=== PATIENT | male | born 1935 | race Caucasian/White ===

== ENCOUNTER 2021-09-03 08:41 | Outpatient (CLI) | payer MEDICARE, SELFPAY | END 2021-09-03 08:42 | disposition home or self-care (01) | LOC: WOUND 08:41 | PROVIDERS: Visit Provider Nurse Practitioner Family | DX: E11.621 Type 2 diabetes mellitus with foot ulcer (principal); E11.40 Type 2 diabetes mellitus with diabetic neuropathy, unspecified; L97.412 Non-pressure chronic ulcer of right heel and midfoot with fat layer exposed; L97.422 Non-pressure chronic ulcer of left heel and midfoot with fat layer exposed; Z79.84 Long term (current) use of oral hypoglycemic drugs | CPT/HCPCS: 11042 ==

== ENCOUNTER 2021-09-10 08:37 | Outpatient (CLI) | payer MEDICARE, SELFPAY | END 2021-09-10 08:38 | disposition home or self-care (01) | PROVIDERS: PCP Family Medicine; Visit Provider Nurse Practitioner Family | DX: E11.621 Type 2 diabetes mellitus with foot ulcer (principal); E11.40 Type 2 diabetes mellitus with diabetic neuropathy, unspecified; L97.412 Non-pressure chronic ulcer of right heel and midfoot with fat layer exposed | CPT/HCPCS: 97597 ==

== ENCOUNTER 2021-09-24 09:24 | Outpatient (CLI) | payer MEDICARE, SELFPAY | END 2021-09-24 09:25 | disposition home or self-care (01) | LOC: WOUND 09:24 | PROVIDERS: PCP Family Medicine; Visit Provider Nurse Practitioner Family | DX: E11.621 Type 2 diabetes mellitus with foot ulcer (principal); L97.412 Non-pressure chronic ulcer of right heel and midfoot with fat layer exposed; L97.422 Non-pressure chronic ulcer of left heel and midfoot with fat layer exposed | CPT/HCPCS: 99212 ==

== ENCOUNTER 2021-09-28 13:34 | Outpatient (CLI) | payer MEDICARE, SELFPAY ==
[2021-09-28 21:30] LABS: Albumin* 3.9 g/dL (3.3-5.0)
[2021-09-28 21:31] LABS: Chloride* 107 mmol/L (96-114); Potassium* 4.5 mmol/L (3.6-5.1); Sodium* 138 mmol/L (135-149)
[2021-09-28 21:33] LABS: Creatinine* 0.8 mg/dL (0.5-1.5); Estimated Glomerular Filt Rate 87 ml/min
[2021-09-28 21:36] LABS: Alanine Aminotransferase* 14 U/L (4-50); Alkaline Phosphatase* 100 U/L (40-150); Aspartate Amino Transferase* 20 U/L (12-35); Bilirubin Total* 0.3 mg/dL (0.1-1.5); Blood Urea Nitrogen* 28 mg/dL (7-30); Calcium* 8.8 mg/dL (8.4-10.6); Carbon Dioxide* 26 mmol/L (20-32); Glucose* 133 mg/dL (60-115); Total Protein* 6.5 g/dL (6.0-8.3)
== END 2021-09-28 13:35 | disposition home or self-care (01) ==
LOC: FRMREF 13:35
PROVIDERS: PCP Family Medicine; Visit Provider Family Medicine
DX: E11.9 Type 2 diabetes mellitus without complications (principal); Z79.01 Long term (current) use of anticoagulants
CPT/HCPCS: 80053

== ENCOUNTER 2022-01-11 07:53 | Outpatient (CLI) | payer MEDICARE, SELFPAY ==
[2022-01-11 14:10] LABS: Chloride* 107 mmol/L (96-114); Potassium* 4.2 mmol/L (3.6-5.1); Sodium* 139 mmol/L (135-149)
[2022-01-11 14:13] LABS: Alanine Aminotransferase* 16 U/L (4-50); Alkaline Phosphatase* 77 U/L (40-150); Aspartate Amino Transferase* 21 U/L (12-35); Bilirubin Total* 0.4 mg/dL (0.1-1.5); Blood Urea Nitrogen* 24 mg/dL (7-30); Carbon Dioxide* 27 mmol/L (20-32); Creatinine* 0.8 mg/dL (0.5-1.5); Estimated Glomerular Filt Rate 86 ml/min; Glucose* 122 mg/dL (60-115); Total Protein Urine 6 mg/dL; Total Protein* 6.5 g/dL (6.0-8.3)
[2022-01-11 14:14] LABS: Calcium* 8.7 mg/dL (8.4-10.6)
[2022-01-11 14:20] LABS: Microalbumin Urine 2 mg/dL
[2022-01-11 14:23] LABS: Creatinine Urine 102.1 mg/dL; Microalbumin Creatinine Ratio 10 mg/g (0-30)
[2022-01-11 15:01] LABS: Hepatitis C Virus Antibody* Negative (Negative)
--- NOTE | 2022-01-26 09:35 | ONC.NURNOTE ---
Addendum entered by Nadja Mustafa RN 02/04/22 12:26: Left another message today to have patient call back to schedule. Original Note: Left message on patient's phone to schedule appointment with hematology regarding unprovoked? PE.
== END 2022-01-11 07:54 | disposition home or self-care (01) ==
PROVIDERS: PCP Family Medicine; Visit Provider Family Medicine
DX: Z00.00 Encounter for general adult medical examination without abnormal findings (principal); E05.90 Thyrotoxicosis, unspecified without thyrotoxic crisis or storm; E11.9 Type 2 diabetes mellitus without complications; Z11.59 Encounter for screening for other viral diseases
CPT/HCPCS: 80053; 82043; 82570; 84156; 84443; 86803

== ENCOUNTER 2022-03-02 10:15 | Outpatient (CLI) | payer MEDICARE, SELFPAY ==
[2022-03-02 13:51] LABS: INR 2.28 (0.91-1.10); Prothrombin Time 26.3 Seconds
== END 2022-03-02 10:16 | disposition home or self-care (01) ==
LOC: FRMREF 10:16
PROVIDERS: PCP Family Medicine; Visit Provider Family Medicine
DX: I82.409 Acute embolism and thrombosis of unspecified deep veins of unspecified lower extremity (principal); Z79.01 Long term (current) use of anticoagulants
CPT/HCPCS: 85610

== ENCOUNTER 2022-03-11 12:40 | Outpatient (CLI) | payer MEDICARE, SELFPAY | END 2022-03-11 12:41 | disposition home or self-care (01) | LOC: WOUND 12:40 | PROVIDERS: PCP Family Medicine; Visit Provider Nurse Practitioner Family | DX: E11.621 Type 2 diabetes mellitus with foot ulcer (principal); L97.512 Non-pressure chronic ulcer of other part of right foot with fat layer exposed; L97.412 Non-pressure chronic ulcer of right heel and midfoot with fat layer exposed; I87.2 Venous insufficiency (chronic) (peripheral); L97.312 Non-pressure chronic ulcer of right ankle with fat layer exposed; Z79.84 Long term (current) use of oral hypoglycemic drugs | CPT/HCPCS: 11042 ==

== ENCOUNTER 2022-03-18 13:56 | Outpatient (CLI) | payer MEDICARE, SELFPAY | END 2022-03-18 13:57 | disposition home or self-care (01) | LOC: WOUND 13:56 | PROVIDERS: PCP Family Medicine; Visit Provider Nurse Practitioner Family | DX: E11.621 Type 2 diabetes mellitus with foot ulcer (principal); L97.512 Non-pressure chronic ulcer of other part of right foot with fat layer exposed; L97.312 Non-pressure chronic ulcer of right ankle with fat layer exposed; L97.412 Non-pressure chronic ulcer of right heel and midfoot with fat layer exposed; I87.2 Venous insufficiency (chronic) (peripheral); I89.0 Lymphedema, not elsewhere classified; Z79.84 Long term (current) use of oral hypoglycemic drugs | CPT/HCPCS: 11042 ==

== ENCOUNTER 2022-03-25 13:43 | Outpatient (CLI) | payer MEDICARE, SELFPAY | END 2022-03-25 13:44 | disposition home or self-care (01) | LOC: WOUND 13:43 | PROVIDERS: PCP Family Medicine; Visit Provider Nurse Practitioner Family | DX: E11.621 Type 2 diabetes mellitus with foot ulcer (principal); L97.512 Non-pressure chronic ulcer of other part of right foot with fat layer exposed; L97.412 Non-pressure chronic ulcer of right heel and midfoot with fat layer exposed; E11.622 Type 2 diabetes mellitus with other skin ulcer; L97.312 Non-pressure chronic ulcer of right ankle with fat layer exposed; Z79.84 Long term (current) use of oral hypoglycemic drugs | CPT/HCPCS: 11042; 97597 ==

== ENCOUNTER 2022-03-29 13:42 | Outpatient (CLI) | payer MEDICARE, SELFPAY ==
--- NOTE | 2022-03-29 14:00 | CRLHL7_ITS ---
For Patients: As a result of the Century Cures Act, medical imaging exams and procedure reports are released immediately into your electronic medical record. You may view this report before your referring provider. If you have questions, please contact your health care provider. DUPLEX ARTERIAL ULTRASOUND BILATERAL LOWER EXTREMITIES, 03/29/2022 CLINICAL HISTORY: Peripheral arterial disease, nonhealing right lower extremity wound. COMPARISON: 07/07/2021. TECHNIQUE: The bilateral lower extremity arteries were examined per exam specific protocol with castillo-scale ultrasound, color-flow and Doppler spectral analysis. Peak systolic velocities (PSV), Doppler waveform quality and velocity ratios, if applicable, were documented at sites per exam specific protocol. FINDINGS: RIGHT: PSV (cm/sec). Waveform (T-Tri, B-Bi, M-[place]). BLOW TORCH BURNER: 65. B. DFA: 99. T. FA PRX: 83. T. FA MID: 95. T. FA DISTAL: 66. Multiphasic. POP A: 141. Multiphasic. SHERRY A: 75. M. DIONY: 127. M. DPA: 38. M. LEFT: PSV (cm/sec). Waveform (T-Tri, B-Bi, M-[place]). BLOW TORCH BURNER: 56. T. DFA: 107. B. FA PRX: 78. T. FA MID: 66. T. FA DISTAL: 45. B. POP A: 50. T. SHERRY A: 47. M. DIONY: 69. M. DPA: 102. M. Right Lower Extremity: Predominantly multiphasic waveforms are seen throughout with monophasic waveforms noted in the pedal arteries. No hemodynamically-significant stenoses or occlusions are identified. Left Lower Extremity: Predominantly multiphasic waveforms are seen throughout with monophasic waveforms noted in the pedal arteries. No hemodynamically-significant stenoses or occlusions are identified. No flow is seen in the bilateral posterior tibial arteries. IMPRESSION: Right lower extremity: Predominantly multiphasic waveforms throughout bilateral lower extremity arterial systems with monophasic waveforms noted in the pedal arteries. No hemodynamically-significant stenoses or occlusions are identified. The posterior tibial arteries do not demonstrate flow in both lower extremities, which may be due to suboptimal visualization. IRINEO WILHELM M.D. Vascular and Interventional Radiology [email or web address] Transcribed: 5:35 p.m. ALIVIA/Dictated by: Irineo Wilhelm MD @ 03/29/2022 5:02:00 PM (Electronically Signed)
== END 2022-03-29 13:43 | disposition home or self-care (01) ==
LOC: US 13:46
PROVIDERS: PCP Family Medicine; Visit Provider Nurse Practitioner Family
DX: L97.518 Non-pressure chronic ulcer of other part of right foot with other specified severity (principal)
CPT/HCPCS: 93926

== ENCOUNTER 2022-04-01 13:43 | Outpatient (CLI) | payer MEDICARE, SELFPAY | END 2022-04-01 13:44 | disposition home or self-care (01) | LOC: WOUND 13:43 | PROVIDERS: PCP Family Medicine; Visit Provider Nurse Practitioner Family | DX: E11.621 Type 2 diabetes mellitus with foot ulcer (principal); L97.512 Non-pressure chronic ulcer of other part of right foot with fat layer exposed; E11.622 Type 2 diabetes mellitus with other skin ulcer; L97.312 Non-pressure chronic ulcer of right ankle with fat layer exposed; I87.2 Venous insufficiency (chronic) (peripheral); I89.0 Lymphedema, not elsewhere classified; Z79.84 Long term (current) use of oral hypoglycemic drugs | CPT/HCPCS: 11042; 97597 ==

== ENCOUNTER 2022-04-15 13:12 | Outpatient (CLI) | payer MEDICARE, SELFPAY | END 2022-04-15 13:13 | disposition home or self-care (01) | LOC: WOUND 13:12 | PROVIDERS: PCP Family Medicine; Visit Provider Nurse Practitioner Family | DX: I87.2 Venous insufficiency (chronic) (peripheral) (principal); E11.621 Type 2 diabetes mellitus with foot ulcer; L97.512 Non-pressure chronic ulcer of other part of right foot with fat layer exposed; I89.0 Lymphedema, not elsewhere classified; Z79.84 Long term (current) use of oral hypoglycemic drugs | CPT/HCPCS: 97597 ==

== ENCOUNTER 2022-04-23 12:25 | Outpatient (CLI) | payer MEDICARE, SELFPAY | END 2022-04-23 12:26 | disposition home or self-care (01) | LOC: WOUND 12:26 | PROVIDERS: PCP Family Medicine; Visit Provider Nurse Practitioner Family | DX: E11.621 Type 2 diabetes mellitus with foot ulcer (principal); L97.512 Non-pressure chronic ulcer of other part of right foot with fat layer exposed; I87.2 Venous insufficiency (chronic) (peripheral); I89.0 Lymphedema, not elsewhere classified; Z79.84 Long term (current) use of oral hypoglycemic drugs | CPT/HCPCS: 11042 ==

== ENCOUNTER 2022-05-13 10:27 | Outpatient (RCR) | payer MEDICARE, SELFPAY | END 2022-11-09 23:59 | disposition home or self-care (01) | LOC: CCIC 10:27 | PROVIDERS: PCP Family Medicine; Visit Provider Internal Medicine Hematology & Oncology | DX: I26.99 Other pulmonary embolism without acute cor pulmonale (principal); I82.409 Acute embolism and thrombosis of unspecified deep veins of unspecified lower extremity; Z79.01 Long term (current) use of anticoagulants; E11.40 Type 2 diabetes mellitus with diabetic neuropathy, unspecified; I87.2 Venous insufficiency (chronic) (peripheral); N18.2 Chronic kidney disease, stage 2 (mild) | CPT/HCPCS: 99202; 99205 ==

== ENCOUNTER 2022-05-13 11:59 | Outpatient (CLI) | payer MEDICARE, SELFPAY | END 2022-05-13 12:00 | disposition home or self-care (01) | LOC: WOUND 11:59 | PROVIDERS: PCP Family Medicine; Visit Provider Nurse Practitioner Family | DX: E11.621 Type 2 diabetes mellitus with foot ulcer (principal); L97.512 Non-pressure chronic ulcer of other part of right foot with fat layer exposed; I89.0 Lymphedema, not elsewhere classified; I87.2 Venous insufficiency (chronic) (peripheral); Z79.84 Long term (current) use of oral hypoglycemic drugs | CPT/HCPCS: 11042 ==

== ENCOUNTER 2022-05-27 13:49 | Outpatient (CLI) | payer MEDICARE, SELFPAY | END 2022-05-27 13:50 | disposition home or self-care (01) | LOC: WOUND 13:49 | PROVIDERS: PCP Family Medicine; Visit Provider Nurse Practitioner Family | DX: E11.621 Type 2 diabetes mellitus with foot ulcer (principal); L97.512 Non-pressure chronic ulcer of other part of right foot with fat layer exposed; L97.412 Non-pressure chronic ulcer of right heel and midfoot with fat layer exposed; I89.0 Lymphedema, not elsewhere classified; I87.2 Venous insufficiency (chronic) (peripheral); Z79.84 Long term (current) use of oral hypoglycemic drugs | CPT/HCPCS: 11042 ==

== ENCOUNTER 2022-05-31 15:02 | Outpatient (CLI) | payer MEDICARE, SELFPAY | END 2022-05-31 15:03 | disposition home or self-care (01) | LOC: FRMREF 15:03 | PROVIDERS: PCP Family Medicine; Visit Provider Family Medicine | DX: I10 Essential (primary) hypertension (principal); E11.9 Type 2 diabetes mellitus without complications; R73.03 Prediabetes | CPT/HCPCS: 80048 ==

== ENCOUNTER 2022-06-03 09:45 | Outpatient (CLI) | payer MEDICARE, SELFPAY | END 2022-06-03 09:46 | disposition home or self-care (01) | LOC: WOUND 09:45 | PROVIDERS: PCP Family Medicine; Visit Provider Nurse Practitioner Family | DX: E11.621 Type 2 diabetes mellitus with foot ulcer (principal); L97.512 Non-pressure chronic ulcer of other part of right foot with fat layer exposed; L97.412 Non-pressure chronic ulcer of right heel and midfoot with fat layer exposed; Z79.84 Long term (current) use of oral hypoglycemic drugs | CPT/HCPCS: 97597 ==

== ENCOUNTER 2022-06-10 14:35 | Outpatient (CLI) | payer MEDICARE, SELFPAY | END 2022-06-10 14:36 | disposition home or self-care (01) | LOC: WOUND 14:35 | PROVIDERS: PCP Family Medicine; Visit Provider Nurse Practitioner Family | DX: E11.621 Type 2 diabetes mellitus with foot ulcer (principal); L97.512 Non-pressure chronic ulcer of other part of right foot with fat layer exposed; Z79.84 Long term (current) use of oral hypoglycemic drugs; I87.2 Venous insufficiency (chronic) (peripheral); I89.0 Lymphedema, not elsewhere classified | CPT/HCPCS: 11042; 87070; 87186 ==

== ENCOUNTER 2022-06-24 13:43 | Outpatient (CLI) | payer MEDICARE, SELFPAY | END 2022-06-24 13:44 | disposition home or self-care (01) | LOC: WOUND 13:43 | PROVIDERS: PCP Family Medicine; Visit Provider Nurse Practitioner Family | DX: E11.621 Type 2 diabetes mellitus with foot ulcer (principal); L97.512 Non-pressure chronic ulcer of other part of right foot with fat layer exposed; E11.622 Type 2 diabetes mellitus with other skin ulcer; L97.812 Non-pressure chronic ulcer of other part of right lower leg with fat layer exposed; Z79.84 Long term (current) use of oral hypoglycemic drugs; I89.0 Lymphedema, not elsewhere classified; I87.2 Venous insufficiency (chronic) (peripheral) | CPT/HCPCS: 11042 ==

== ENCOUNTER 2022-07-08 11:25 | Outpatient (CLI) | payer MEDICARE, SELFPAY | END 2022-07-08 11:26 | disposition home or self-care (01) | LOC: WOUND 11:25 | PROVIDERS: PCP Family Medicine; Visit Provider Nurse Practitioner Family | DX: E11.621 Type 2 diabetes mellitus with foot ulcer (principal); L97.512 Non-pressure chronic ulcer of other part of right foot with fat layer exposed; E11.622 Type 2 diabetes mellitus with other skin ulcer; L97.812 Non-pressure chronic ulcer of other part of right lower leg with fat layer exposed; I89.0 Lymphedema, not elsewhere classified; I87.2 Venous insufficiency (chronic) (peripheral); Z79.84 Long term (current) use of oral hypoglycemic drugs | CPT/HCPCS: 11042 ==

== ENCOUNTER 2022-08-12 14:48 | Outpatient (CLI) | payer MEDICARE, SELFPAY | END 2022-08-12 14:49 | disposition home or self-care (01) | LOC: WOUND 14:48 | PROVIDERS: PCP Family Medicine; Visit Provider Nurse Practitioner Family | DX: E11.621 Type 2 diabetes mellitus with foot ulcer (principal); L97.512 Non-pressure chronic ulcer of other part of right foot with fat layer exposed; L97.412 Non-pressure chronic ulcer of right heel and midfoot with fat layer exposed; Z79.84 Long term (current) use of oral hypoglycemic drugs; I89.0 Lymphedema, not elsewhere classified | CPT/HCPCS: 11042 ==

== ENCOUNTER 2022-08-26 10:16 | Outpatient (CLI) | payer MEDICARE, SELFPAY | END 2022-08-26 10:17 | disposition home or self-care (01) | LOC: WOUND 10:16 | PROVIDERS: PCP Family Medicine; Visit Provider Family Medicine | DX: E11.621 Type 2 diabetes mellitus with foot ulcer (principal); L97.512 Non-pressure chronic ulcer of other part of right foot with fat layer exposed; L97.411 Non-pressure chronic ulcer of right heel and midfoot limited to breakdown of skin; Z79.84 Long term (current) use of oral hypoglycemic drugs | CPT/HCPCS: 97597 ==

== ENCOUNTER 2022-09-09 11:02 | Outpatient (CLI) | payer MEDICARE, SELFPAY | END 2022-09-09 11:03 | disposition home or self-care (01) | LOC: WOUND 11:02 | PROVIDERS: PCP Family Medicine; Visit Provider Nurse Practitioner Family | DX: E11.621 Type 2 diabetes mellitus with foot ulcer (principal); L97.512 Non-pressure chronic ulcer of other part of right foot with fat layer exposed; Z79.84 Long term (current) use of oral hypoglycemic drugs | CPT/HCPCS: 97597 ==

== ENCOUNTER 2022-09-23 14:41 | Outpatient (CLI) | payer MEDICARE, SELFPAY | END 2022-09-23 14:42 | disposition home or self-care (01) | LOC: WOUND 14:42 | PROVIDERS: PCP Family Medicine; Visit Provider Nurse Practitioner Family | DX: E11.621 Type 2 diabetes mellitus with foot ulcer (principal); L97.412 Non-pressure chronic ulcer of right heel and midfoot with fat layer exposed; L97.512 Non-pressure chronic ulcer of other part of right foot with fat layer exposed; Z79.84 Long term (current) use of oral hypoglycemic drugs | CPT/HCPCS: 97597 ==

== ENCOUNTER 2022-10-07 14:57 | Outpatient (CLI) | payer MEDICARE, SELFPAY | END 2022-10-07 14:58 | disposition home or self-care (01) | LOC: WOUND 14:57 | PROVIDERS: PCP Family Medicine; Visit Provider Nurse Practitioner Family | DX: E11.621 Type 2 diabetes mellitus with foot ulcer (principal); L97.512 Non-pressure chronic ulcer of other part of right foot with fat layer exposed; I89.0 Lymphedema, not elsewhere classified; Z79.84 Long term (current) use of oral hypoglycemic drugs | CPT/HCPCS: 99213 ==

== ENCOUNTER 2022-11-07 08:17 | Emergency (ER) | payer MEDICARE, SELFPAY ==
[2022-11-07] VITALS (8 sets, daily range): BP systolic 121–145; BP diastolic 68–78; PULSE 56–66; RESP 16–18; TEMP 36.6; O2SAT 94–98; BMI 22.2
--- NOTE | 2022-11-07 08:41 | ED_ITS ---
HPI - Weakness General Time Seen by Provider: 08:41 Date Seen: 11/07/22 Chief complaint: Weakness Stated complaint: possible afib, blood clot, short of breath Time Seen by Provider: 11/07/22 08:41 Source: patient and RN notes reviewed Mode of arrival: ambulatory Limitations: no limitations History of Present Illness HPI Narrative: This 86-year-old male is coming in with concern of possible underlying blood clot. He has been feeling weak and tired, decreased energy for about 6 weeks now. He admits when the air quality went bad, he did not want to go outside. Kasie cristina has no history of lung disease, has not been a smoker but has felt short of breath. He has had a history of blood clot after a long flight. He had COVID sometime in the last couple of years, was hospitalize here, was put on Eliquis but the could not find anywhere in the state and was moved to Coumadin. He relates he took that for about 6 months and has been off of it. He wonders about underlying atrial fibrillation, he has had skipped beats. He only notes sugars going up if he is not eating appropriately. He has not had any fevers, no cough, no sore throat. No abdominal pain. Admits that his appetite is down from what it used to be but there is no nausea vomiting diarrhea. No noted urinary symptoms. He notes his stride of his gait is not as long as it use to be. He does have a cane but really only uses it if he is going for a long walk. He is not interested in walking as much as he usually was per his . No chest pain. As far as pain, no increased pain outside of the norm from his arthritis which she reports he has in his neck and in his low back. Complaint: generalized weakness Related Data Home Medications Medication Instructions Recorded Confirmed metformin 500 mg tablet,extended 500 mg PO BID 05/31/22 11/07/22 release 24 hr niacin 500 mg tablet 500 mg PO QDAY 05/31/22 08/05/22 lisinopril 10 mg tablet 10 mg PO DAILY 08/03/22 11/07/22 Previous Rx's Medication Instructions Recorded dutasteride 0.5 mg capsule 0.5 mg PO DAILY #90 caps 01/11/22 glipizide 5 mg tablet 5 mg PO QDAY #90 tabs 01/11/22 tamsulosin 0.4 mg capsule 0.4 mg PO DAILY #90 caps 02/04/22 albuterol sulfate 90 mcg/actuation 2 puff inhalation Q6H PRN 08/05/22 aerosol inhaler (Ventolin HFA) shortness of breath or wheezing #8.5 grams Diabetic Test Strips #200 ea 08/19/22 Allergies Allergy/AdvReac Type Severity Reaction Status Date / Time hydrochlorothiazide AdvReac Severe Dizziness Verified 08/05/22 08:21 aspirin AdvReac Mild nose Verified 08/05/22 08:21 bleeds if he takes asa daily, ok to take once a while Review of Systems Status of ROS: Reports: 10 or more systems reviewed and unremarkable except as noted in History and below [facility] Medical History Current use of manager terminal anticoagulation ?Z79.01 - group home (current) use of anticoagulants (ICD-10) 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 - Thyrotoxicosis, unspecified without thyrotoxic crisis or storm (ICD-10) Pulmonary embolism ?I26.99 - Other pulmonary embolism without acute cor pulmonale (ICD-10) Hydrocele ?N43.3 - Hydrocele, unspecified (ICD-10) History of herpes zoster ?Z86.19 - Personal history of other infectious and parasitic diseases (ICD- 10) Fracture of left ankle ?S82.892A - Other fracture of left lower leg, initial encounter for closed fracture (ICD-10) Deep vein thrombosis (DVT) (09/24/10) ?I82.409 - Acute embolism and thrombosis of unspecified deep veins of unspecified lower extremity (ICD-10) Surgical History Status post ORIF of fracture of ankle ?Z98.890 - Other specified postprocedural states (ICD-10) ?Z87.81 - Personal history of (healed) traumatic fracture (ICD-10) Status post transurethral resection of prostate (09/13/08) ?Z90.79 - Acquired absence of other genital organ(s) (ICD-10) History of testicular surgery ?Z98.890 - Other specified postprocedural states (ICD-10) History of prostate surgery ?Z98.890 - Other specified postprocedural states (ICD-10) Family History Other Colon cancer Diabetes Social History Narrative: Exercises regularly Non-smoker History of tobacco use Smoking Status: Never smoker Exam Const: Vital Signs, click to edit/add: Vital Signs - 24 hr 11/07/22 08:21 11/07/22 08:31 11/07/22 08:32 Temperature 98 F Pulse Rate 64 65 Pulse Rate [Pulse Oximeter] 66 Respiratory Rate 18 16 Blood Pressure 133/75 Blood Pressure [Le ft Upper Arm] 131/78 Pulse Oximetry 98 96 95 Oxygen Delivery Me thod Room Air Room Air 11/07/22 08:45 11/07/22 09:00 11/07/22 09:01 Temperature Pulse Rate 60 59 L 62 Pulse Rate [Pulse Oximeter] Respiratory Rate 16 Blood Pressure 121/68 Blood Pressure [Le ft Upper Arm] Pulse Oximetry 95 96 94 Oxygen Delivery Me thod Room Air 11/07/22 10:52 11/07/22 10:53 Temperature Pulse Rate 56 L 56 L Pulse Rate [Pulse Oximeter] Respiratory Rate Blood Pressure 145/72 H Blood Pressure [Le ft Upper Arm] Pulse Oximetry 96 96 Oxygen Delivery Me thod Slender 86-year-old male lying in bed, very pleasant and conversive, speech is normal. Pupils equal round reactive, sclerae clear, extraocular muscles intact. Symmetrical facial function. Neck is supple, no palpable masses, no thyromegaly masses or nodules, no jugular venous distension. Sits up easily, lungs are clear, good air entry, no wheezing or crackles noted, no tachypnea or accessory muscle use. CV regular rate and rhythm, no murmur, normal S1 and S2. Abdomen is slender, soft, nondistended, no organomegaly or masses noted, cer tainly nontender. He has no lower extremity edema, has a wrap on his right lower extremity which she wears as he has had a history of ulcers on this leg., neurologic exam nonfocal and grossly normal as far as strength and mobility at this time. Documenting provider has reviewed patient's vital signs: yes Course Course Hospital Course: Reviewed with patient and his that the only way truly to rule out thromboembolic disease is to proceed with CT imaging of his chest as well as venous ultrasound. He would like to proceed with that. Will do full complement of labs, have him on cardiac monitoring and pulse oximetry to see if we have any arrhythmia or hypoxia noted while he is here. They do understand that there is always a possibility of underlying paroxysmal atrial fibrillation which if we do not see it here does not mean that he might need further outpatient cardiac monitoring. He understands, agrees with the workup that we are going to proceed, will see if we find anything identifiable but if there is an, will need further outpatient workup. Reevaluation(s) Time of Reevaluation #1: 12:07 Reevaluation #1: Reviewed with patient and his that there is no evidence of DVT or PE on his imaging. There is nothing acute found on his laboratory evaluation. We did discuss that there is incidental gallstones on his CT but his labs would not suggest acute abnormality nor is he symptomatic from biliary colic at this time. Acute cholecystitis is considered but he is having no fever, no noted laboratory changes that would make this concerning, no tenderness on examinati on. At this time, we are going to discharge to home for further outpatient follow-up with his primary provider. They can consider doing outpatient cardiac monitoring such as a Holter or ZIO patch. No arrhythmia is seen here today but they do understand that that does not completely rule out underlying things such as paroxysmal atrial fibrillation. Vital Signs Vital signs: Initial Vital Signs Temperature 98 F 11/07/22 08:21 Temperature Source Temporal Artery Scan 11/07/22 08:21 Pulse Rate 66 11/07/22 08:21 Respiratory Rate 18 11/07/22 08:21 Blood Pressure 131/78 11/07/22 08:21 Blood Pressure Mean 95 11/07/22 08:21 Blood Pressure Position Supine 11/07/22 08:21 Pulse Oximetry 98 11/07/22 08:21 Oxygen Delivery Method Room Air 11/07/22 08:21 Vital Signs Temperature 98 F 11/07/22 08:21 Pulse Rate 66 11/07/22 08:21 Respiratory Rate 18 11/07/22 08:21 Blood Pressure 131/78 11/07/22 08:21 Pulse Oximetry 98 11/07/22 08:21 Oxygen Delivery Method Room Air 11/07/22 08:21 Temperature 98 F 11/07/22 08:21 Pulse Rate 56 L 11/07/22 10:53 Respiratory Rate 16 11/07/22 09:01 Blood Pressure 145/72 H 11/07/22 10:53 Pulse Oximetry 96 11/07/22 10:53 Oxygen Delivery Method Room Air 11/07/22 09:01 MDM - Weakness Lab Data Attestation: I reviewed the patient's lab results. Labs: Lab Results 11/07/22 11/07/22 11/07/22 Range/Units 08:58 09:05 09:10 WBC 6.84 (4.50-11.00) K/uL RBC 4.22 L (4.30-5.90) m/uL Hgb 12.8 L (13.5-17.5) gm/dL Hct 39.3 (37.0-53.0) % MCV 93 (80-100) fL MCH 30 (26-34) pg MCHC 33 (32-36) gm/dL RDW Coeff of Mallorie 15.0 (11.5-15.5) % Plt Count 165 (140-440) K/uL Neut % (Auto) 37.9 L (42.0-72.0) % Lymph % (Auto) 20.5 (20-44) % Hughes % (Auto) 7.3 (0.0-11.0) % Eos % (Auto) 33.5 H (0.0-7.0) % Baso % (Auto) 0.7 (0.0-3.0) % Neut # (Auto) 2.60 (1.7-7.0) K/uL Lymph # (Auto) 1.40 (0.90-2.90) K/uL Hughes # (Auto) 0.50 (0.00-0.90) K/UL Eos # (Auto) 2.30 H (0.00-0.50) K/uL Baso # (Auto) 0.05 (0.00-0.30) K/uL Abs Immat Gran (auto) 0.01 (0.00-0.30) K/uL Imm/Tot Granulo (auto) 0.1 % ESR < 2 L (2-15) mm/hr INR 1.06 (0.91-1.10) APTT 27 (23-33) Seconds D-Dimer Quant (PE/DVT) 1.70 H (0.00-0.50) ug/ml Sodium 138 (135-149) mmol/L Potassium 4.0 (3.6-5.1) mmol/L Chloride 107 (96-114) mmol/L Carbon Dioxide 25 (20-32) mmol/L Anion Gap 6 L (7-15) mEq/L BUN 24 (7-30) mg/dL Creatinine 0.8 (0.5-1.5) mg/dL Estimated Creat Clear 51.03 Estimated GFR 86 ml/min Glucose 142 H (60-115) mg/dL Lactate 0.9 (0.5-1.9) mmol/L Calcium 9.2 (8.4-10.6) mg/dL Magnesium 1.8 (1.5-2.6) mg/dL Total Bilirubin 0.6 (0.1-1.5) mg/dL AST 16 (12-35) U/L ALT 12 (4-50) U/L Alkaline Phosphatase 76 (40-150) U/L Troponin I < 0.01 L (0.01-0.04) ng/mL C-Reactive Protein < 0.5 L (0.5-1.0) mg/dL NT-Pro-B Natriuret Pep 71 pg/mL Total Protein 6.2 (6.0-8.3) g/dL Albumin 3.5 (3.3-5.0) g/dL TSH 0.582 (0.270-4.200) uIU/mL Urine Color (Yellow) Urine Appearance (Clear) Urine pH (5.0-8.5) Ur Specific [place] (1.000-1.030) Urine Protein (Negative) Urine Glucose (UA) (Negative) Urine Ketones (Negative) Urine Blood (Negative) Urine Nitrite (Negative) Urine Bilirubin (Negative) Urine Urobilinogen (0.2-1.0) Ur Leukocyte Esterase (Negative) Urine RBC (0-2) Urine WBC (0-5) Ur Squamous Epith Cells (None-Few) Urine Bacteria (None) SARS-CoV-2 (PCR) Negative SARS-CoV-2 (Negative) POC Creatinine 0.8 (0.6-1.3) mg/dl 11/07/22 Range/Units 09:28 WBC (4.50-11.00) K/uL RBC (4.30-5.90) m/uL Hgb (13.5-17.5) gm/dL Hct (37.0-53.0) % MCV (80-100) fL MCH (26-34) pg MCHC (32-36) gm/dL RDW Coeff of Mallorie (11.5-15.5) % Plt Count (140-440) K/uL Neut % (Auto) (42.0-72.0) % Lymph % (Auto) (20-44) % Hughes % (Auto) (0.0-11.0) % Eos % (Auto) (0.0-7.0) % Baso % (Auto) (0.0-3.0) % Neut # (Auto) (1.7-7.0) K/uL Lymph # (Auto) (0.90-2.90) K/uL Hughes # (Auto) (0.00-0.90) K/UL Eos # (Auto) (0.00-0.50) K/uL Baso # (Auto) (0.00-0.30) K/uL Abs Immat Gran (auto) (0.00-0.30) K/uL Imm/Tot Granulo (auto) % ESR (2-15) mm/hr INR (0.91-1.10) APTT (23-33) Seconds D-Dimer Quant (PE/DVT) (0.00-0.50) ug/ml Sodium (135-149) mmol/L Potassium (3.6-5.1) mmol/L Chloride (96-114) mmol/L Carbon Dioxide (20-32) mmol/L Anion Gap (7-15) mEq/L BUN (7-30) mg/dL Creatinine (0.5-1.5) mg/dL Estimated Creat Clear Estimated GFR ml/min Glucose (60-115) mg/dL Lactate (0.5-1.9) mmol/L Calcium (8.4-10.6) mg/dL Magnesium (1.5-2.6) mg/dL Total Bilirubin (0.1-1.5) mg/dL AST (12-35) U/L ALT (4-50) U/L Alkaline Phosphatase (40-150) U/L Troponin I (0.01-0.04) ng/mL C-Reactive Protein (0.5-1.0) mg/dL NT-Pro-B Natriuret Pep pg/mL Total Protein (6.0-8.3) g/dL Albumin (3.3-5.0) g/dL TSH (0.270-4.200) uIU/mL Urine Color Yellow (Yellow) Urine Appearance Clear (Clear) Urine pH 7.0 (5.0-8.5) Ur Specific [place] 1.020 (1.000-1.030) Urine Protein Negative (Negative) Urine Glucose (UA) Negative (Negative) Urine Ketones Trace A (Negative) Urine Blood Negative (Negative) Urine Nitrite Negative (Negative) Urine Bilirubin Negative (Negative) Urine Urobilinogen 0.2 (0.2-1.0) Ur Leukocyte Esterase Negative (Negative) Urine RBC 0-2 (0-2) Urine WBC 0-2 (0-5) Ur Squamous Epith Cells Few (None-Few) Urine Bacteria None (None) SARS-CoV-2 (PCR) (Negative) POC Creatinine (0.6-1.3) mg/dl Imaging Data CT scan - chest: Attestation: I have reviewed the pertinent imaging results. Radiologist's impression: Patient: RALPH HOFFMANN Facility:?[facility] Patient ID:?[id number] Site Patient ID:?[id number]. Site :?[id number] Study:?CT Chest Angio PE PROTOCOL-11/07/2022 10:50:38 AM Ordering Physician:Kerry Elliott Final Report: INDICATION: Shortness of breath. Weakness. History of pulmonary embolism and deep venous thrombosis. TECHNIQUE: Multiple axial images were obtained from the apices to the diaphragm after administration of 95 mL of Isovue-370 intravenously. Sagittal and coronal re- formatted images were obtained. FINDINGS: There is atelectasis in the dependent portion of the lungs. The lung otherwise are clear. There is no pleural effusion. There are calcified granulomas bilaterally. There is no axillary, mediastinal or hilar adenopathy. There are calcified left hilar and subcarinal lymph nodes. There is no pulmonary artery embolism seen. There are calcifications in the liver and spleen consistent with previous granulomatous disease. There are gallstones and cholesterol stones in the gallbladder. There is a left kidney cyst. There are atherosclerotic calcifications including coronary artery calcifications. There are degenerative changes and scoliosis in the spine. IMPRESSION: 1. No acute abnormality. 2. No pulmonary artery embolism seen. 3. Evidence of previous granulomatous disease. 4. Gallstones and cholesterol stones in the gallbladder. Please note that all CT scans at this facility use dose modulation, iterative reconstruction, and/or weight-based dosing when appropriate to reduce radiation dose to as low as reasonably achievable. Dictated by Quincy Bone MD @ 11/07/2022 11:41:57 AM (Electronic Signature) Venous US: Attestation: I have reviewed the pertinent imaging results. Radiologist's impression: Patient: RLAPH HOFFMANN Facility:?[facility] Patient ID:?[id number] Site Patient ID:?[id number]. Site :?[id number] Study:?US Extremity Bilateral LEV BILATERAL-11/07/2022 10:36:35 AM Ordering Physician:Kerry Elliott Final Report: INDICATION: Shortness of breath. History of DVT/PE. TECHNIQUE: Ultrasound venous duplex bilateral lower extremity. Compression venous exam was performed using castillo-scale, color Doppler, and spectral Doppler analysis. COMPARISON: 02/12/2021. FINDINGS: Deep veins: Sonographic imaging demonstrates chronic incomplete compressibility of what appears to be 1 of 2 duplicated distal right femoral veins consistent with the sequelae of prior DVT, unchanged compared to 02/12/2021. Otherwise the bilateral common femoral, deep femoral, superficial femoral, popliteal, po sterior tibial and peroneal veins to be fully compressible with normal color Doppler blood flow. Superficial veins: Greater saphenous vein is fully compressible. No popliteal cyst. IMPRESSION: Chronic changes involving the distal right femoral vein described above consistent with the sequelae of DVT. No acute DVT in either lower extremity. Dictated by Milton Nicole MD @ 11/07/2022 11:01:21 AM (Electronic Signature) ECG Data Attestation: I personally reviewed and interpreted this ECG as follows: (Sinus rhythm with first-degree AV block, heart rate 69 beats per minute. Bifascicular block.) ECG interpretation date: 11/07/22 ECG interpretation time: 08:41 Discharge Plan Discharge Clinical Impression: Irregular heart beat, Weakness Patient Disposition: Home, Self-Care Condition: Stable Instructions: Heart Palpitations (ED), Weakness (ED) Additional Instructions: Continue to monitor your symptoms closely. If you develop fever, have a specific symptoms that is becoming concerning or are worsening in general, need to be re-evaluated. Can talk to your primary care provider about further outpatient monitoring with a ZIO patch Holter monitor to help rule out any concern for paroxysmal atrial fibrillation or other arrhythmia. At this time, no abnormal rhythm was seen while you were monitored here in the ER. Asymptomatic gallstones were seen incidentally on the CT. There was no evidence of blood clots on chest CT or venous ultrasound of the legs. Activity Level: Activity as Tolerated Prescriptions: No Action metformin 500 mg tablet extended release 24 hr 500 mg PO BID niacin 500 mg tablet 500 mg PO QDAY dutasteride 0.5 mg capsule 0.5 mg PO DAILY Qty: 90 3RF glipizide 5 mg tablet 5 mg PO QDAY Qty: 90 3RF tamsulosin 0.4 mg capsule 0.4 mg PO DAILY Qty: 90 3RF albuterol sulfate [Ventolin HFA] 90 mcg/actuation HFA aerosol inhaler 2 puff inhalation Q6H PRN (Reason: shortness of breath or wheezing) Qty: 8.5 12RF Rx Instructions: dispense whichever albuterol inhaler is covered lisinopril 10 mg tablet 10 mg PO DAILY (DME) Diabetic Test Strips Misc See Rx Instructions .Route Qty: 200 0RF Rx Instructions: daily -As directed Follow Up/Referrals: Katelynn Schulte MD [Primary Care Provider] - Stand Alone Forms: [facility] Info Instructions
--- NOTE | 2022-11-07 08:57 | CRLHL7_ITS ---
For Patients: As a result of the Century Cures Act, medical imaging exams and procedure reports are released immediately into your electronic medical record. You may view this report before your referring provider. If you have questions, please contact your health care provider. INDICATION: Shortness of breath. Weakness. History of pulmonary embolism and deep venous thrombosis. TECHNIQUE: Multiple axial images were obtained from the apices to the diaphragm after administration of 95 mL of Isovue-370 intravenously. Sagittal and coronal re-formatted images were obtained. FINDINGS: There is atelectasis in the dependent portion of the lungs. The lung otherwise are clear. There is no pleural effusion. There are calcified granulomas bilaterally. There is no axillary, mediastinal or hilar adenopathy. There are calcified left hilar and subcarinal lymph nodes. There is no pulmonary artery embolism seen. There are calcifications in the liver and spleen consistent with previous granulomatous disease. There are gallstones and cholesterol stones in the gallbladder. There is a left kidney cyst. There are atherosclerotic calcifications including coronary artery calcifications. There are degenerative changes and scoliosis in the spine. IMPRESSION: 1. No acute abnormality. 2. No pulmonary artery embolism seen. 3. Evidence of previous granulomatous disease. 4. Gallstones and cholesterol stones in the gallbladder. Please note that all CT scans at this facility use dose modulation, iterative reconstruction, and/or weight-based dosing when appropriate to reduce radiation dose to as low as reasonably achievable. Dictated by Quincy Bone MD @ 11/07/2022 11:41:57 AM (Electronically Signed)
--- NOTE | 2022-11-07 09:07 | CRLHL7_ITS ---
For Patients: As a result of the Century Cures Act, medical imaging exams and procedure reports are released immediately into your electronic medical record. You may view this report before your referring provider. If you have questions, please contact your health care provider. INDICATION: Shortness of breath. History of DVT/PE. TECHNIQUE: Ultrasound venous duplex bilateral lower extremity. Compression venous exam was performed using castillo-scale, color Doppler, and spectral Doppler analysis. COMPARISON: 02/12/2021. FINDINGS: Deep veins: Sonographic imaging demonstrates chronic incomplete compressibility of what appears to be 1 of 2 duplicated distal right femoral veins consistent with the sequelae of prior DVT, unchanged compared to 02/12/2021. Otherwise the bilateral common femoral, deep femoral, superficial femoral, popliteal, posterior tibial and peroneal veins to be fully compressible with normal color Doppler blood flow. Superficial veins: Greater saphenous vein is fully compressible. No popliteal cyst. IMPRESSION: Chronic changes involving the distal right femoral vein described above consistent with the sequelae of DVT. No acute DVT in either lower extremity. Dictated by Milton Nicole MD @ 11/07/2022 11:01:21 AM (Electronically Signed)
[2022-11-07 09:24] LABS: Lactate* 0.9 mmol/L (0.5-1.9)
[2022-11-07 09:27] LABS: Basophils Absolute Auto 0.05 K/uL (0.00-0.30); Basophils Percent Auto 0.7 % (0.0-3.0); Eosinophils Percent Auto 33.5 % (0.0-7.0); Hematocrit 39.3 % (37.0-53.0); Hemoglobin* 12.8 gm/dL (13.5-17.5); Immature Granulocytes Abs Auto 0.01 K/uL (0.00-0.30); Immature Granulocytes Pct Auto 0.1 %; Lymphocytes Percent Auto 20.5 % (20-44); Mean Corpuscular HGB Conc 33 gm/dL (32-36); Mean Corpuscular Hemoglobin 30 pg (26-34); Mean Corpuscular Volume 93 fL (80-100); Monocytes Percent Auto 7.3 % (0.0-11.0); Neutrophils Percent Auto 37.9 % (42.0-72.0); Platelet Count* 165 K/uL (140-440); Red Blood Count 4.22 m/uL (4.30-5.90); White Blood Count* 6.84 K/uL (4.50-11.00)
[2022-11-07 09:28] LABS: Creatinine, Point-of-Care* 0.8 mg/dl (0.6-1.3)
[2022-11-07 09:29] LABS: Slide Review Reflex No
[2022-11-07 09:42] LABS: Appearance Urine Clear (Clear); Bilirubin Urine Negative (Negative); Blood Urine Negative (Negative); Color Urine Yellow (Yellow); Glucose Urine Negative (Negative); Ketones Urine Trace (Negative); Leukocyte Esterase Urine Negative (Negative); Nitrite Urine Negative (Negative); Protein Urine Negative (Negative); Urobilinogen Urine 0.2 (0.2-1.0)
[2022-11-07 09:43] LABS: Chloride* 107 mmol/L (96-114)
[2022-11-07 09:44] LABS: Albumin* 3.5 g/dL (3.3-5.0); Sodium* 138 mmol/L (135-149)
[2022-11-07 09:45] LABS: INR 1.06 (0.91-1.10); Prothrombin Time 14.5 Seconds
[2022-11-07 09:46] LABS: Creatinine* 0.8 mg/dL (0.5-1.5); Est. Creatinine Clearance* 51.03; Estimated Glomerular Filt Rate 86 ml/min; Partial Thromboplastin Time* 27 Seconds (23-33)
[2022-11-07 09:47] LABS: Alanine Aminotransferase* 12 U/L (4-50); Alkaline Phosphatase* 76 U/L (40-150); Anion Gap 6 mEq/L (7-15); Aspartate Amino Transferase* 16 U/L (12-35); Bilirubin Total* 0.6 mg/dL (0.1-1.5); Blood Urea Nitrogen* 24 mg/dL (7-30); Calcium* 9.2 mg/dL (8.4-10.6); Carbon Dioxide* 25 mmol/L (20-32); Glucose* 142 mg/dL (60-115); Total Protein* 6.2 g/dL (6.0-8.3)
[2022-11-07 09:48] LABS: Magnesium* 1.8 mg/dL (1.5-2.6)
[2022-11-07 09:55] LABS: C Reactive Protein* < 0.5 mg/dL (0.5-1.0)
[2022-11-07 10:01] LABS: RBC Urine 0-2 (0-2); WBC Urine 0-2 (0-5)
[2022-11-07 10:02] LABS: Squamous Epithelial Cell Urine Few (None-Few)
[2022-11-07 10:08] LABS: SARS PCR* Negative SARS-CoV-2 (Negative)
[2022-11-07 10:09] LABS: Erythrocyte SedimentationRate* < 2 mm/hr (2-15)
[2022-11-07 10:18] LABS: TSH With Reflex to FT4* 0.582 uIU/mL (0.270-4.200)
[2022-11-07 10:23] LABS: NT Pro B Type NatriureticPept* 71 pg/mL; Troponin I* < 0.01 ng/mL (0.01-0.04)
== END 2022-11-07 12:35 | disposition home or self-care (01) ==
PROVIDERS: Emergency Provider Family Medicine; PCP Family Medicine
DX: I49.9 Cardiac arrhythmia, unspecified (principal); R53.1 Weakness; R06.02 Shortness of breath; Z86.718 Personal history of other venous thrombosis and embolism
CPT/HCPCS: 36415; 71275; 80053; 81001; 82565; 83605; 83735; 83880; 84443; 84484; 85025; 85379; 85610; 85651; 85730; 86140; 87635; 93005; 93970; 94761; 99284; 99285; Q9967

== ENCOUNTER 2022-11-30 10:14 | Outpatient (CLI) | payer MEDICARE, SELFPAY ==
[2022-11-30 14:23] LABS: Total Protein Urine < 5 mg/dL
[2022-11-30 14:26] LABS: Creatinine Urine 95.5 mg/dL
[2022-11-30 14:30] LABS: Microalbumin Creatinine Ratio 10 mg/g (0-30); Microalbumin Urine 1 mg/dL
== END 2022-11-30 10:15 | disposition home or self-care (01) ==
PROVIDERS: PCP Family Medicine; Visit Provider Family Medicine
DX: Z00.00 Encounter for general adult medical examination without abnormal findings (principal); E11.9 Type 2 diabetes mellitus without complications; D64.9 Anemia, unspecified; I10 Essential (primary) hypertension; K92.1 Melena; R80.9 Proteinuria, unspecified; N18.2 Chronic kidney disease, stage 2 (mild); N40.0 Benign prostatic hyperplasia without lower urinary tract symptoms; Z13.6 Encounter for screening for cardiovascular disorders; Z12.5 Encounter for screening for malignant neoplasm of prostate; Z79.899 Other long term (current) drug therapy; Z11.59 Encounter for screening for other viral diseases
CPT/HCPCS: 80053; 80061; 82043; 82570; 82607; 84153; 84156; 86803

== ENCOUNTER 2023-02-18 12:31 | Outpatient (CLI) | payer MEDICARE, SELFPAY | END 2023-02-18 12:32 | disposition home or self-care (01) | LOC: RAD 12:31 | PROVIDERS: PCP Family Medicine; Visit Provider Internal Medicine Cardiovascular Disease | DX: R00.2 Palpitations (principal) | CPT/HCPCS: 93306 ==

== ENCOUNTER 2023-12-19 10:40 | Outpatient (CLI) | payer MEDICARE, SELFPAY | END 2023-12-19 10:41 | disposition home or self-care (01) | PROVIDERS: PCP Family Medicine; Visit Provider Family Medicine | DX: I10 Essential (primary) hypertension (principal); E11.9 Type 2 diabetes mellitus without complications; D64.9 Anemia, unspecified; N18.9 Chronic kidney disease, unspecified | CPT/HCPCS: 80053; 82043; 82570; 82607 ==

== ENCOUNTER 2024-02-21 14:34 | Emergency (ER) | payer MEDICARE, SELFPAY ==
[2024-02-21 14:39] VITALS: BP 158/71; PULSE 70; RESP 18; TEMP 36.8; O2SAT 98; BMI 21.9
--- NOTE | 2024-02-21 14:55 | ED_ITS ---
HPI - General Adult General Chief complaint: Lower Extremity Swelling Stated complaint: [facility] sent, possible blood clot RT leg Time Seen by Provider: 02/21/24 14:38 History of Present Illness HPI narrative: Patient presents to the emergency department complaining of a possible blood clot in right leg. Patient called into the clinic to get evaluated and was instructed to go to the emergency department. Patient states he believes he has a blood clot on his right leg due to increased swelling behind his right knee . Patient has a hx of blood clots, has non healing wounds on right leg as well. Not on blood thinners at this time. No pain no redness. 88-year-old man presenting to the emergency department concern of swelling and discomfort in posterior right knee and up into his right thigh. Notes a history of DVT. Does not recall an injury. No chest pain or new shortness of breath. No fever. Called into the clinic and was recommended to go to the emergency department. Related Data Previous Rx's ?Medication ?Instructions ?Recorded blood sugar diagnostic (OneTouch #200 strips 03/16/23 Ultra Test strips) Diabetic Test Strips #100 ea 12/19/23 dutasteride 0.5 mg capsule 0.5 mg PO DAILY #90 caps 12/19/23 glipizide 5 mg tablet 5 mg PO QDAY #90 tabs 12/19/23 lisinopril 5 mg tablet 5 mg PO QDAY #90 tabs 12/19/23 metformin 500 mg tablet,extended 500 - 1,000 mg (1 - 2 x 500 mg) PO 12/19/23 release 24 hr BID #240 tabs tamsulosin 0.4 mg capsule 0.4 mg PO DAILY #90 caps 12/19/23 Allergies Allergy/AdvReac Type Severity Reaction Status Date / Time hydrochlorothiazide AdvReac Severe Dizziness Verified 02/21/24 14:45 aspirin AdvReac Mild nose Verified 02/21/24 14:45 bleeds if he takes asa daily, ok to take once a while Review of Systems Status of ROS: Reports: 6 or more systems reviewed and unremarkable except as noted in History and below [facility] Medical History Black stool ?K92.1 - Melena (ICD-10) Pulmonary embolism ?I26.99 - Other pulmonary embolism without acute cor pulmonale (ICD-10) Health care directive on file ?Z78.9 - Other specified health status (ICD-10) Venous stasis ulcer ?I83.009 - Varicose veins of unspecified lower extremity with ulcer of unspecified site (ICD-10) ?L97.909 - Non-pressure chronic ulcer of unspecified part of unspecified lower leg with unspecified severity (ICD-10) Deep vein thrombosis (DVT) (09/24/10) ?I82.409 - Acute embolism and thrombosis of unspecified deep veins of unspecified lower extremity (ICD-10) 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 - Thyrotoxicosis, unspecified without thyrotoxic crisis or storm (ICD-10) Hydrocele ?N43.3 - Hydrocele, unspecified (ICD-10) History of herpes zoster ?Z86.19 - Personal history of other infectious and parasitic diseases (ICD- 10) Surgical History Status post ORIF of fracture of ankle ?Z98.890 - Other specified postprocedural states (ICD-10) ?Z87.81 - Personal history of (healed) traumatic fracture (ICD-10) Status post transurethral resection of prostate (09/13/08) ?Z90.79 - Acquired absence of other genital organ(s) (ICD-10) History of testicular surgery ?Z98.890 - Other specified postprocedural states (ICD-10) History of prostate surgery ?Z98.890 - Other specified postprocedural states (ICD-10) Family History Other Colon cancer Diabetes Social History Narrative: Exercises regularly Non-smoker History of tobacco use What is your current living situation?: I presently have a place to live Problems where you live: no known problems In the past 12 months, utilities in danger of being shut off: no In past 12 months, lack of transportation kept you from medical appts, meetings, work, or getting things needed for daily living: no In the past 12 mos, have been you worried that your food would run out before you had money to buy more?: never true In the past 12 mos, the food you bought just didn't last and you didn't have money to buy more?: never true Smoking Status: Never smoker Do you use any of these nicotine containing products: None Second hand tobacco smoke exposure: No How often do you have a drink containing alcohol: monthly or less AUDIT-C Alcohol total score: 1 Non-prescribed substance use: denies use How often does anyone, including family, friends and others, physically hurt you : never How often does anyone, including family, friends and others, insult or talk down to you: never How often does anyone, including family, friends and others, threaten you with harm: never How often does anyone, including family, friends and others, scream or curse at you: never service: No Exam Narrative: Exam Narrative: At pleasant. NAD. Breathing easily. Skin is warm and dry. Symmetrical f ullness in both and geniculate fossa. Heavy hemosiderin deposition bilaterally with faint erythema on the lower left anterior tibial area. Mild pitting edema of the lower legs. He notes some swelling in the medial upper right thigh as well --perhaps I can appreciate little more fullness here than the left. No pain to palpation. Const: Vital Signs, click to edit/add: Vital Signs - 24 hr 02/21/24 14:39 Temperature 98.2 F Pulse Rate [Right Pulse Oximeter] 70 Respiratory Rate 18 Blood Pressure [Ri ght Upper Arm] 158/71 H Pulse Oximetry 98 Oxygen Delivery Me thod Room Air Documenting provider has reviewed patient's vital signs: yes Course Vital Signs Vital signs: Initial Vital Signs Temperature 98.2 F 02/21/24 14:39 Temperature Source Temporal Artery Scan 02/21/24 14:39 Pulse Rate 70 02/21/24 14:39 Pulse Rhythm Regular 02/21/24 14:39 Pulse Strength 3+ Normal 02/21/24 14:39 Respiratory Rate 18 02/21/24 14:39 Blood Pressure 158/71 H 02/21/24 14:39 Blood Pressure Mean 100 02/21/24 14:39 Blood Pressure Position Sitting 02/21/24 14:39 Pulse Oximetry 98 02/21/24 14:39 Oxygen Delivery Method Room Air 02/21/24 14:39 Vital Signs Temperature 98.2 F 02/21/24 14:39 Pulse Rate 70 02/21/24 14:39 Respiratory Rate 18 02/21/24 14:39 Blood Pressure 158/71 H 02/21/24 14:39 Pulse Oximetry 98 02/21/24 14:39 Oxygen Delivery Method Room Air 02/21/24 14:39 Temperature 98.2 F 02/21/24 14:39 Pulse Rate 73 02/21/24 16:20 Respiratory Rate 16 02/21/24 16:20 Blood Pressure 132/66 02/21/24 16:20 Pulse Oximetry 96 02/21/24 16:20 Oxygen Delivery Method Room Air 02/21/24 16:20 Medical Decision Making MDM Narrative Medical decision making narrative: Does not sound to be an injury. Does not have pulmonary symptoms. With history of DVT think it is prudent to go ahead and scan his lower leg. Does not have symptoms that seem to be exacerbated by flexion or extension to suggest muscu loskeletal involvement otherwise. There is an asymmetry that may simply not have been noted otherwise? Newly- appreciated but chronic? This area of question is not really consistent with venous insufficiency. Pending venous Doppler ultrasound of the right leg. I did review these findings with c unix developer. No evidence of Lester's cyst or acute thrombus. Chronic thrombus is noted. TECHNIQUE: Ultrasound venous duplex lower right extremity. Compression venous exam was performed using castillo-scale, color Doppler, and spectral Doppler analysis. COMPARISON: 11/07/2022. FINDINGS: Right common femoral vein is patent and compressible. Visualized right greater saphenous vein and deep femoral veins are patent. Chronic nonocclusive deep venous thrombosis in the distal right femoral and popliteal veins has not significantly changed. Visualized right peroneal and posterior tibial veins are patent. Contralateral left common femoral vein is patent. Soft tissues elsewhere as imaged are unremarkable. IMPRESSION: 1. No evidence of acute right lower extremity deep venous thrombosis. 2. 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 Will provide with Dexter wraps for temporary treatment. See patient discharge plan for further discussion Consider wrapping with Dexter wraps this concerning area. Would also just see how it looks tomorrow. Perhaps this is just a transient swelling. Medical Records Medical records reviewed: Yes I reviewed the patient's medical records Discharge Plan Discharge Clinical Impression: Leg swelling Patient Disposition: Home w/ Parent or Adult Condition: Stable Additional Instructions: Consider wrapping with Dexter wraps this concerning area. Would also just see how it looks tomorrow. Perhaps this is just a transient swelling. Prescriptions: No Action metformin 500 mg tablet extended release 24 hr 500 - 1,000 mg PO BID Qty: 240 3RF (DME) Diabetic Test Strips Misc See Rx Instructions .Route Qty: 100 3RF Rx Instructions: As directed lisinopril 5 mg tablet 5 mg PO QDAY Qty: 90 3RF glipizide 5 mg tablet 5 mg PO QDAY Qty: 90 3RF tamsulosin 0.4 mg capsule 0.4 mg PO DAILY Qty: 90 3RF dutasteride 0.5 mg capsule 0.5 mg PO DAILY Qty: 90 3RF (DME) OneTouch Ultra Test Strip See Rx Instructions .ROUTE .COMPLEX Qty: 200 2RF Dose Instruction: TEST DAILY DIRECTED Rx Instructions: TEST DAILY DIRECTED Follow Up/Referrals: Katelynn Schulte MD [Primary Care Provider] - Stand Alone Forms: [facility] Info Inst[facility]
--- NOTE | 2024-02-21 14:59 | CRLHL7_ITS ---
For Patients: As a result of the Cures Act, medical imaging exams and procedure reports are released immediately into your electronic medical record. You may view this report before your referring provider. If you have questions, please contact your health care provider. INDICATION: Posterior thigh and knee swelling. TECHNIQUE: Ultrasound venous duplex lower right extremity. Compression venous exam was performed using castillo-scale, color Doppler, and spectral Doppler analysis. COMPARISON: 11/07/2022. FINDINGS: Right common femoral vein is patent and compressible. Visualized right greater saphenous vein and deep femoral veins are patent. Chronic nonocclusive deep venous thrombosis in the distal right femoral and popliteal veins has not significantly changed. Visualized right peroneal and posterior tibial veins are patent. Contralateral left common femoral vein is patent. Soft tissues elsewhere as imaged are unremarkable. IMPRESSION: 1. No evidence of acute right lower extremity deep venous thrombosis. 2. 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 Dictated by Curtis Valdes MD @ 02/21/2024 4:11:46 PM Dictated by: Curtis Valdes MD @ 02/21/2024 16:11:57 (Electronically Signed)
[2024-02-21 16:20] VITALS: BP 132/66; PULSE 73; RESP 16; O2SAT 96
== END 2024-02-21 16:41 | disposition home or self-care (01) ==
PROVIDERS: Emergency Provider Family Medicine; PCP Family Medicine
DX: R22.41 Localized swelling, mass and lump, right lower limb (principal)
CPT/HCPCS: 93971; 99283; 99284

== ENCOUNTER 2024-03-19 13:39 | Outpatient (CLI) | payer MEDICARE, SELFPAY | END 2024-03-19 13:40 | disposition home or self-care (01) | LOC: WOUND 13:40 | PROVIDERS: PCP Family Medicine; Visit Provider Nurse Practitioner Family | DX: E11.621 Type 2 diabetes mellitus with foot ulcer (principal); I87.2 Venous insufficiency (chronic) (peripheral); I73.9 Peripheral vascular disease, unspecified; L97.518 Non-pressure chronic ulcer of other part of right foot with other specified severity; Z79.84 Long term (current) use of oral hypoglycemic drugs | CPT/HCPCS: 11042; G0463 ==

== ENCOUNTER 2024-03-26 15:24 | Outpatient (CLI) | payer MEDICARE, SELFPAY | END 2024-03-26 16:00 | disposition home or self-care (01) | LOC: WOUND 04-07 07:54 | PROVIDERS: PCP Family Medicine; Visit Provider Nurse Practitioner Family | DX: E11.621 Type 2 diabetes mellitus with foot ulcer (principal); L97.516 Non-pressure chronic ulcer of other part of right foot with bone involvement without evidence of necrosis; L97.518 Non-pressure chronic ulcer of other part of right foot with other specified severity; L97.415 Non-pressure chronic ulcer of right heel and midfoot with muscle involvement without evidence of necrosis; I87.2 Venous insufficiency (chronic) (peripheral); I73.9 Peripheral vascular disease, unspecified; B95.61 Methicillin susceptible Staphylococcus aureus infection as the cause of diseases classified elsewhere; Z79.84 Long term (current) use of oral hypoglycemic drugs | CPT/HCPCS: 11043; 11046; 87070; 87186; 96372; 97597; G0463; J0696 ==

== ENCOUNTER 2024-03-26 16:07 | Outpatient (CLI) | payer MEDICARE, SELFPAY ==
--- NOTE | 2024-03-26 16:15 | CRLHL7_ITS ---
For Patients: As a result of the Century Cures Act, medical imaging exams and procedure reports are released immediately into your electronic medical record. You may view this report before your referring provider. If you have questions, please contact your health care provider. INDICATION: Nonhealing wound assess for osteomyelitis. TECHNIQUE: Two views of the right foot. COMPARISON: 07/15/2009. FINDINGS: Demineralization. Soft tissue ulcer in the ball of the foot on the lateral image. No specific radiographic evidence for osteomyelitis. Marked arterial calcification in the ankle and foot. Scattered mild osteoarthritis. Postop changes in the ankle. Dense benign-appearing soft tissue calcification in the lower leg. Dictated by Estrada Taylor MD @ 03/27/2024 9:04:07 AM (Electronically Signed)
== END 2024-03-26 16:08 | disposition home or self-care (01) ==
LOC: RAD 16:08
PROVIDERS: PCP Family Medicine; Visit Provider Nurse Practitioner Family
DX: E11.621 Type 2 diabetes mellitus with foot ulcer (principal); M19.071 Primary osteoarthritis, right ankle and foot
CPT/HCPCS: 73620

== ENCOUNTER 2024-03-28 13:45 | Outpatient (CLI) | payer MEDICARE, SELFPAY ==
--- NOTE | 2024-03-28 14:00 | CRLHL7_ITS ---
For Patients: As a result of the Cures Act, medical imaging exams and procedure reports are released immediately into your electronic medical record. You may view this report before your referring provider. If you have questions, please contact your health care provider. INDICATION: Abnormal ABIs; nonhealing ulcer right foot. COMPARISON: Duplex ultrasound evaluation arterial system both lower extremities March 29, 2022 and 07/07/2021. TECHNIQUE: Duplex ultrasound evaluation of arterial system of both lower extremities; color Doppler duplex assessment. FINDINGS: Right leg: Common femoral artery 72 cm/second multiphasic. Deep femoral artery 146 cm/second monophasic. Proximal SFA 108 cm/second monophasic. Mid SFA 87 cm/second monophasic. Distal SFA 101 cm/second multiphasic. Popliteal artery 55 cm/second multiphasic. Peroneal artery 99 cm/sec monophasic. ARTIFICIAL INTELLIGENCE SPECIALIST 42 cm/sec monophasic. Distal ARTIFICIAL INTELLIGENCE SPECIALIST occluded. Proximal DIONY are occluded. Distal DIONY collateral flow 22 cm/sec monophasic. DPA 84 cm/sec monophasic. Diffuse calcific atheromatous changes. Left lower extremity: Common femoral artery 77 cm/second multiphasic. Deep femoral artery 100 cm/second multiphasic. Proximal SFA 147 cm/sec monophasic. Mid SFA 64 cm/second multiphasic. Distal SFA 31 cm/second multiphasic. Popliteal artery 56 cm/second multiphasic. Proximal peroneal artery 65 cm/second monophasic. Distal peroneal artery no flow. Posterior tibial artery is occluded. DIONY 46 cm/second biphasic. DPA 63 cm/second monophasic. IMPRESSION: 1. Diffuse calcific atheromatous changes bilateral. 2. Monophasic flow identified in the runoff vessels bilaterally. 3. No gross interval change when compared to the previous imaging. Dictated by Freida Colbert MD @ 03/29/2024 9:45:27 AM (Electronically Signed)
== END 2024-03-28 13:46 | disposition home or self-care (01) ==
LOC: US 13:45
PROVIDERS: PCP Family Medicine; Visit Provider Nurse Practitioner Family
DX: E11.621 Type 2 diabetes mellitus with foot ulcer (principal); I73.9 Peripheral vascular disease, unspecified
CPT/HCPCS: 93926

== ENCOUNTER 2024-04-02 13:39 | Outpatient (CLI) | payer MEDICARE, SELFPAY | END 2024-04-02 13:40 | disposition home or self-care (01) | LOC: WOUND 13:39 | PROVIDERS: PCP Family Medicine; Visit Provider Nurse Practitioner Family | DX: E11.621 Type 2 diabetes mellitus with foot ulcer (principal); I87.2 Venous insufficiency (chronic) (peripheral); I73.9 Peripheral vascular disease, unspecified; L97.518 Non-pressure chronic ulcer of other part of right foot with other specified severity; L97.416 Non-pressure chronic ulcer of right heel and midfoot with bone involvement without evidence of necrosis; L97.418 Non-pressure chronic ulcer of right heel and midfoot with other specified severity; B95.61 Methicillin susceptible Staphylococcus aureus infection as the cause of diseases classified elsewhere; Z79.84 Long term (current) use of oral hypoglycemic drugs | CPT/HCPCS: 11043; 87070; 87186; 96372; 97597; G0463; J0696 ==

== ENCOUNTER 2024-04-04 11:11 | Outpatient (CLI) | payer MEDICARE, SELFPAY | END 2024-04-04 11:12 | disposition home or self-care (01) | LOC: WOUND 11:11 | PROVIDERS: PCP Family Medicine; Visit Provider Nurse Practitioner Family | DX: E11.621 Type 2 diabetes mellitus with foot ulcer (principal); I87.2 Venous insufficiency (chronic) (peripheral); I73.9 Peripheral vascular disease, unspecified; L97.415 Non-pressure chronic ulcer of right heel and midfoot with muscle involvement without evidence of necrosis; L97.516 Non-pressure chronic ulcer of other part of right foot with bone involvement without evidence of necrosis; Z79.84 Long term (current) use of oral hypoglycemic drugs | CPT/HCPCS: G0463 ==

== ENCOUNTER 2024-04-11 09:23 | Outpatient (CLI) | payer MEDICARE, SELFPAY ==
[2024-04-11 11:12] LABS: Basophils Absolute Auto 0.07 K/uL (0.00-0.30); Basophils Percent Auto 0.7 % (0.0-3.0); Eosinophils Absolute Auto 0.25 K/uL (0.00-0.50); Eosinophils Percent Auto 2.6 % (0.0-7.0); Hematocrit 41.1 % (37.0-53.0); Hemoglobin* 12.8 gm/dL (13.5-17.5); Lymphocytes Percent Auto 13.3 % (20-44); Mean Corpuscular HGB Conc 31 gm/dL (32-36); Mean Corpuscular Hemoglobin 29 pg (26-34); Mean Corpuscular Volume 94 fL (80-100); Monocytes Percent Auto 6.1 % (0.0-11.0); Neutrophils Percent Auto 76.3 % (42.0-72.0); Platelet Count* 372 K/uL (140-440); RDW Coefficient of Variation % 14.3 % (11.5-15.5); Red Blood Count 4.37 m/uL (4.30-5.90); White Blood Count* 9.72 K/uL (4.50-11.00)
[2024-04-11 11:18] LABS: Albumin* 3.9 g/dL (3.3-5.0); Chloride* 103 mmol/L (96-114); Potassium* 4.6 mmol/L (3.6-5.1); Sodium* 137 mmol/L (135-149)
[2024-04-11 11:20] LABS: Creatinine* 0.8 mg/dL (0.5-1.5); Estimated Glomerular Filt Rate 85 ml/min
[2024-04-11 11:21] LABS: Alanine Aminotransferase* 21 U/L (4-50); Alkaline Phosphatase* 82 U/L (40-150); Anion Gap 6 mEq/L (7-15); Aspartate Amino Transferase* 18 U/L (12-35); Bilirubin Total* 0.2 mg/dL (0.1-1.5); Blood Urea Nitrogen* 41 mg/dL (7-30); Carbon Dioxide* 28 mmol/L (20-32); Glucose* 320 mg/dL (60-115); Total Protein* 7.2 g/dL (6.0-8.3)
[2024-04-11 11:22] LABS: Calcium* 9.4 mg/dL (8.4-10.6)
[2024-04-11 11:35] LABS: C Reactive Protein* < 0.5 mg/dL (0.5-1.0)
[2024-04-11 11:42] LABS: Hemoglobin A1C* 7.9 % (0-5.6)
[2024-04-11 11:53] LABS: Slide Review Reflex No
[2024-04-11 14:40] LABS: Erythrocyte SedimentationRate* 18 mm/hr (2-15)
== END 2024-04-11 09:24 | disposition home or self-care (01) ==
LOC: WOUND 09:23
PROVIDERS: PCP Family Medicine; Visit Provider Nurse Practitioner Family
DX: E11.621 Type 2 diabetes mellitus with foot ulcer (principal); I87.2 Venous insufficiency (chronic) (peripheral); I73.9 Peripheral vascular disease, unspecified; L97.516 Non-pressure chronic ulcer of other part of right foot with bone involvement without evidence of necrosis; L97.512 Non-pressure chronic ulcer of other part of right foot with fat layer exposed; L97.412 Non-pressure chronic ulcer of right heel and midfoot with fat layer exposed; Z79.84 Long term (current) use of oral hypoglycemic drugs
CPT/HCPCS: 11043; 36415; 80053; 83036; 85025; 85651; 86140; G0463

== ENCOUNTER 2024-04-12 09:08 | Outpatient (CLI) | payer MEDICARE, SELFPAY | END 2024-04-12 09:09 | disposition home or self-care (01) | LOC: RAD 09:09 | PROVIDERS: PCP Family Medicine; Visit Provider Nurse Practitioner Family | DX: E11.621 Type 2 diabetes mellitus with foot ulcer (principal); L97.516 Non-pressure chronic ulcer of other part of right foot with bone involvement without evidence of necrosis; M86.8X7 Other osteomyelitis, ankle and foot; J98.4 Other disorders of lung; L02.611 Cutaneous abscess of right foot | CPT/HCPCS: 71046; 73720; G0463; A9575 ==

== ENCOUNTER 2024-04-12 10:55 | Outpatient (CLI) | payer MEDICARE, SELFPAY | END 2024-04-12 10:56 | disposition home or self-care (01) | LOC: WOUND 10:55 | PROVIDERS: PCP Family Medicine; Visit Provider Nurse Practitioner Family | DX: E11.621 Type 2 diabetes mellitus with foot ulcer (principal); L97.516 Non-pressure chronic ulcer of other part of right foot with bone involvement without evidence of necrosis; L97.415 Non-pressure chronic ulcer of right heel and midfoot with muscle involvement without evidence of necrosis; L97.512 Non-pressure chronic ulcer of other part of right foot with fat layer exposed; Z79.84 Long term (current) use of oral hypoglycemic drugs; M86.8X7 Other osteomyelitis, ankle and foot; J98.4 Other disorders of lung; L02.611 Cutaneous abscess of right foot | CPT/HCPCS: G0463 ==

== ENCOUNTER 2024-05-04 12:00 | Outpatient (CLI) | payer MEDICARE, SELFPAY | END 2024-05-04 12:01 | disposition home or self-care (01) | LOC: NFLDREF 05-07 02:16 | PROVIDERS: PCP Family Medicine; Referring Provider Family Medicine; Visit Provider Podiatrist | DX: E11.621 Type 2 diabetes mellitus with foot ulcer (principal); L97.509 Non-pressure chronic ulcer of other part of unspecified foot with unspecified severity | CPT/HCPCS: 86140 ==

== ENCOUNTER 2024-05-11 15:13 | Outpatient (CLI) | payer MEDICARE, SELFPAY | END 2024-05-11 15:14 | disposition home or self-care (01) | LOC: WOUND 15:13 | PROVIDERS: PCP Family Medicine; Visit Provider Nurse Practitioner Family | DX: E11.621 Type 2 diabetes mellitus with foot ulcer (principal); I87.2 Venous insufficiency (chronic) (peripheral); L97.512 Non-pressure chronic ulcer of other part of right foot with fat layer exposed; Z79.84 Long term (current) use of oral hypoglycemic drugs | CPT/HCPCS: 11042 ==

== ENCOUNTER 2024-05-16 11:21 | Outpatient (CLI) | payer MEDICARE, SELFPAY | END 2024-05-16 11:22 | disposition home or self-care (01) | LOC: WOUND 11:21 | PROVIDERS: PCP Family Medicine; Visit Provider Nurse Practitioner Family | DX: E11.621 Type 2 diabetes mellitus with foot ulcer (principal); L97.518 Non-pressure chronic ulcer of other part of right foot with other specified severity; I87.2 Venous insufficiency (chronic) (peripheral); I73.9 Peripheral vascular disease, unspecified; Z79.84 Long term (current) use of oral hypoglycemic drugs | CPT/HCPCS: G0463 ==

== ENCOUNTER 2024-05-30 11:16 | Outpatient (CLI) | payer MEDICARE, SELFPAY | END 2024-05-30 11:17 | disposition home or self-care (01) | LOC: WOUND 11:16 | PROVIDERS: PCP Family Medicine; Visit Provider Family Medicine | DX: E11.621 Type 2 diabetes mellitus with foot ulcer (principal); I73.9 Peripheral vascular disease, unspecified; L97.518 Non-pressure chronic ulcer of other part of right foot with other specified severity; Z79.84 Long term (current) use of oral hypoglycemic drugs | CPT/HCPCS: G0463 ==

== ENCOUNTER 2024-06-06 11:18 | Outpatient (CLI) | payer MEDICARE, SELFPAY | END 2024-06-06 11:19 | disposition home or self-care (01) | LOC: WOUND 11:18 | PROVIDERS: PCP Family Medicine; Visit Provider Nurse Practitioner Family | DX: Z86.31 Personal history of diabetic foot ulcer (principal); I87.2 Venous insufficiency (chronic) (peripheral); I73.9 Peripheral vascular disease, unspecified | CPT/HCPCS: G0463 ==

== ENCOUNTER 2024-10-17 07:55 | Outpatient (CLI) | payer MEDICARE, SELFPAY | END 2024-10-17 07:56 | disposition home or self-care (01) | LOC: NFLDREF 10-21 14:28 | PROVIDERS: PCP Family Medicine; Referring Provider Family Medicine; Visit Provider Family Medicine | DX: R25.2 Cramp and spasm (principal); E11.22 Type 2 diabetes mellitus with diabetic chronic kidney disease; I12.9 Hypertensive chronic kidney disease with stage 1 through stage 4 chronic kidney disease, or unspecified chronic kidney disease; N18.2 Chronic kidney disease, stage 2 (mild); Z13.1 Encounter for screening for diabetes mellitus | CPT/HCPCS: 80053; 82550 ==

== ENCOUNTER 2024-11-27 08:49 | Outpatient (CLI) | payer MEDICARE, SELFPAY | END 2024-11-27 08:50 | disposition home or self-care (01) | LOC: WOUND 08:51 | PROVIDERS: PCP Family Medicine; Visit Provider Nurse Practitioner Family | DX: I87.2 Venous insufficiency (chronic) (peripheral) (principal); I73.9 Peripheral vascular disease, unspecified; E11.622 Type 2 diabetes mellitus with other skin ulcer; L97.812 Non-pressure chronic ulcer of other part of right lower leg with fat layer exposed; Z79.84 Long term (current) use of oral hypoglycemic drugs | CPT/HCPCS: 11042; G0463 ==

== ENCOUNTER 2024-12-04 08:57 | Outpatient (CLI) | payer MEDICARE, SELFPAY | END 2024-12-04 08:58 | disposition home or self-care (01) | LOC: WOUND 08:57 | PROVIDERS: PCP Family Medicine; Visit Provider Nurse Practitioner Family | DX: I87.2 Venous insufficiency (chronic) (peripheral) (principal); I73.9 Peripheral vascular disease, unspecified; E11.622 Type 2 diabetes mellitus with other skin ulcer; L97.812 Non-pressure chronic ulcer of other part of right lower leg with fat layer exposed; Z79.84 Long term (current) use of oral hypoglycemic drugs | CPT/HCPCS: 97597 ==

== ENCOUNTER 2024-12-06 14:49 | Outpatient (CLI) | payer MEDICARE, SELFPAY | END 2024-12-06 14:50 | disposition home or self-care (01) | LOC: NFLDREF 12-21 13:56 | PROVIDERS: PCP Family Medicine; Referring Provider Family Medicine; Visit Provider Family Medicine | DX: Z00.00 Encounter for general adult medical examination without abnormal findings (principal) | CPT/HCPCS: 80053 ==

== ENCOUNTER 2024-12-11 09:19 | Outpatient (CLI) | payer MEDICARE, SELFPAY | END 2024-12-11 09:20 | disposition home or self-care (01) | LOC: WOUND 09:21 | PROVIDERS: PCP Family Medicine; Visit Provider Nurse Practitioner Family | DX: I87.2 Venous insufficiency (chronic) (peripheral) (principal); I73.9 Peripheral vascular disease, unspecified; E11.622 Type 2 diabetes mellitus with other skin ulcer; L97.812 Non-pressure chronic ulcer of other part of right lower leg with fat layer exposed; L97.312 Non-pressure chronic ulcer of right ankle with fat layer exposed; E11.40 Type 2 diabetes mellitus with diabetic neuropathy, unspecified; Z79.84 Long term (current) use of oral hypoglycemic drugs | CPT/HCPCS: 97597 ==

== ENCOUNTER 2024-12-25 09:15 | Outpatient (CLI) | payer MEDICARE, SELFPAY | END 2024-12-25 09:16 | disposition home or self-care (01) | LOC: WOUND 09:15 | PROVIDERS: PCP Family Medicine; Visit Provider Nurse Practitioner Family | DX: I87.2 Venous insufficiency (chronic) (peripheral) (principal); I73.9 Peripheral vascular disease, unspecified; E11.622 Type 2 diabetes mellitus with other skin ulcer; L97.812 Non-pressure chronic ulcer of other part of right lower leg with fat layer exposed; L97.312 Non-pressure chronic ulcer of right ankle with fat layer exposed; E11.40 Type 2 diabetes mellitus with diabetic neuropathy, unspecified; Z79.84 Long term (current) use of oral hypoglycemic drugs | CPT/HCPCS: 11042 ==

== ENCOUNTER 2025-01-01 09:11 | Outpatient (CLI) | payer MEDICARE, SELFPAY | END 2025-01-01 09:12 | disposition home or self-care (01) | LOC: WOUND 09:12 | PROVIDERS: PCP Family Medicine; Visit Provider Nurse Practitioner Family | DX: I87.2 Venous insufficiency (chronic) (peripheral) (principal); E11.622 Type 2 diabetes mellitus with other skin ulcer; L97.812 Non-pressure chronic ulcer of other part of right lower leg with fat layer exposed; L97.312 Non-pressure chronic ulcer of right ankle with fat layer exposed; E11.40 Type 2 diabetes mellitus with diabetic neuropathy, unspecified; Z79.84 Long term (current) use of oral hypoglycemic drugs | CPT/HCPCS: G0463 ==

== ENCOUNTER 2025-01-08 09:01 | Outpatient (CLI) | payer MEDICARE, SELFPAY | END 2025-01-08 09:02 | disposition home or self-care (01) | LOC: WOUND 09:02 | PROVIDERS: PCP Family Medicine; Visit Provider Nurse Practitioner Family | DX: I87.2 Venous insufficiency (chronic) (peripheral) (principal); E11.622 Type 2 diabetes mellitus with other skin ulcer; L97.812 Non-pressure chronic ulcer of other part of right lower leg with fat layer exposed; E11.40 Type 2 diabetes mellitus with diabetic neuropathy, unspecified; Z79.84 Long term (current) use of oral hypoglycemic drugs | CPT/HCPCS: 11042; 87070; G0463 ==

== ENCOUNTER 2025-01-15 10:53 | Outpatient (CLI) | payer MEDICARE, SELFPAY | END 2025-01-15 10:54 | disposition home or self-care (01) | LOC: WOUND 10:54 | PROVIDERS: PCP Family Medicine; Visit Provider Nurse Practitioner Family | DX: I87.2 Venous insufficiency (chronic) (peripheral) (principal); E11.622 Type 2 diabetes mellitus with other skin ulcer; L97.812 Non-pressure chronic ulcer of other part of right lower leg with fat layer exposed; L97.512 Non-pressure chronic ulcer of other part of right foot with fat layer exposed; E11.40 Type 2 diabetes mellitus with diabetic neuropathy, unspecified; Z79.84 Long term (current) use of oral hypoglycemic drugs | CPT/HCPCS: 11042; 97597 ==

== ENCOUNTER 2025-01-22 09:08 | Outpatient (CLI) | payer MEDICARE, SELFPAY | END 2025-01-22 09:09 | disposition home or self-care (01) | LOC: WOUND 09:08 | PROVIDERS: PCP Family Medicine; Visit Provider Nurse Practitioner Family | DX: I87.2 Venous insufficiency (chronic) (peripheral) (principal); I73.9 Peripheral vascular disease, unspecified; E11.622 Type 2 diabetes mellitus with other skin ulcer; L97.812 Non-pressure chronic ulcer of other part of right lower leg with fat layer exposed; E11.621 Type 2 diabetes mellitus with foot ulcer; L97.412 Non-pressure chronic ulcer of right heel and midfoot with fat layer exposed; Z79.84 Long term (current) use of oral hypoglycemic drugs | CPT/HCPCS: 11042 ==

== ENCOUNTER 2025-01-29 09:14 | Outpatient (CLI) | payer MEDICARE, SELFPAY | END 2025-01-29 09:15 | disposition home or self-care (01) | LOC: WOUND 09:14 | PROVIDERS: PCP Family Medicine; Visit Provider Nurse Practitioner Family | DX: I87.2 Venous insufficiency (chronic) (peripheral) (principal); I73.9 Peripheral vascular disease, unspecified; E11.622 Type 2 diabetes mellitus with other skin ulcer; L97.812 Non-pressure chronic ulcer of other part of right lower leg with fat layer exposed; L97.312 Non-pressure chronic ulcer of right ankle with fat layer exposed; Z79.84 Long term (current) use of oral hypoglycemic drugs | CPT/HCPCS: 97597 ==

== ENCOUNTER 2025-02-05 09:17 | Outpatient (CLI) | payer MEDICARE, SELFPAY | END 2025-02-05 09:18 | disposition home or self-care (01) | LOC: WOUND 09:17 | PROVIDERS: PCP Family Medicine; Visit Provider Nurse Practitioner Family | DX: I87.2 Venous insufficiency (chronic) (peripheral) (principal); E11.622 Type 2 diabetes mellitus with other skin ulcer; L97.812 Non-pressure chronic ulcer of other part of right lower leg with fat layer exposed; L97.312 Non-pressure chronic ulcer of right ankle with fat layer exposed; Z79.84 Long term (current) use of oral hypoglycemic drugs | CPT/HCPCS: 11042 ==

== ENCOUNTER 2025-02-06 12:21 | Outpatient (CLI) | payer MEDICARE, SELFPAY | END 2025-02-06 12:22 | disposition home or self-care (01) | LOC: NFLDREF 02-07 14:16 | PROVIDERS: PCP Family Medicine; Referring Provider Family Medicine; Visit Provider Family Medicine | DX: Z00.00 Encounter for general adult medical examination without abnormal findings (principal) | CPT/HCPCS: 80053 ==